=== PATIENT | male | born 1965 | race Hispanic/Latino ===

== ENCOUNTER 2018-02-02 14:12 | Emergency (ER) | payer SELFPAY ==
[~2018-02-02] VITALS: Ht 172.7 cm; Wt 95.3 kg
[~2018-02-02 14:12] MED LIST: ALLOPURINOL300 MG PO; SIMVASTATIN20 MG PO; ZYRTEC10 M3 PO; [UNRECOGNIZED DRUG - OTHER] PO
== END 2018-02-02 15:24 | disposition short-term general hospital (02) ==
LOC: ER 14:12
DX: R10.9 Unspecified abdominal pain (principal)